=== PATIENT | male | born 1995 | race Caucasian/White ===

== ENCOUNTER 2019-08-22 05:12 | Emergency (ER) | payer OTHER ==
[~2019-08-22] VITALS: Ht 182.9 cm; Wt 86.2 kg
[2019-08-22] MEDS ORDERED: CONCERTA36 MG (05:42)
[2019-08-22] MEDS ORDERED: KETO10TA2 PO ×2 (08:20→08:23)
== END 2019-08-22 08:28 | disposition home or self-care (01) ==
LOC: ER 05:12
DX: S90.111A Contusion of right great toe without damage to nail, initial encounter (principal); W22.8XXA Striking against or struck by other objects, initial encounter; Y93.89 Activity, other specified; Y92.89 Other specified places as the place of occurrence of the external cause; Y99.8 Other external cause status